=== PATIENT | female | born 1965 | race Caucasian/White ===

== ENCOUNTER 2017-01-27 11:17 | Emergency (ER) | payer BC ==
[2017-01-27 11:48] VITALS: BP 114/55
--- NOTE | 2017-01-27 12:21 | RAD ---
Indication: Left fourth digit injury. 3 views of left foot there is demonstrates avulsion fracture of the left dorsal plate of the distal phalanx of the fourth digit. IMPRESSION: Fracture of the dorsal plate proximal and distal phalanx fourth digit.
--- NOTE | 2017-01-27 12:47 | UC ---
Upper Extremity HPI - HPI Summary HPI Summary: 51F presents with left ring finger injury on 01/19. She jammed it on a basketball. She has pain at the DIP joint. She is unable to fully extend her distal phalanx. She states that she has decreased sensation over the DIP. She denies any previous injury to the area. pain is 3/10. She is right handed. - History of Current Complaint Chief Complaint: UCUpperExtremity Stated Complaint: FINGER INJURY Time Seen by Provider: 01/27/17 12:40 - Allergies/Home Medications Allergies/Adverse Reactions: Allergies Allergy/AdvReac Type Severity Reaction Status Date / Time No Known Allergies Allergy Verified 01/27/17 11:48 Home Medications: Home Medications Ibuprofen [Advil] 2 tab PO Q6H 01/27/17 [History Confirmed 01/27/17] PMH/Surg Hx/FS Hx/Imm Hx Endocrine History: Other Other Endocrine History: no DM Respiratory History: Other Other Respiratory History: no asthma - Surgical History Surgical History: Unable to Obtain/Confirm - Family History Known Family History: Positive: Cardiac Disease - Social History Alcohol Use: Weekly Substance Use Type: None Smoking Status (MU): Never Smoked Tobacco - Immunization History Most Recent Influenza Vaccination: unknown Review of Systems Motor: Decreased ROM - distal phalanx left ring finger All Other Systems Reviewed And Are Negative: Yes Physical Exam Triage Information Reviewed: Yes Appearance: Well-Appearing Vital Signs: Initial Vital Signs Temp 98.2 F 01/27/17 11:42 Pulse 56 01/27/17 11:42 Resp 16 01/27/17 11:42 BP 114/55 01/27/17 11:42 Pulse Ox 100 01/27/17 11:42 Vital Signs Reviewed: Yes Eyes: Positive: Conjunctiva Clear Respiratory: Positive: Lungs clear, Normal breath sounds Cardiovascular: Positive: RRR Musculoskeletal: Positive: ROM Limited @ - distal phalanx left ring finger, Other: - good pulses, capillary refill<2secs, sensation grossly intact Neurological Exam: Normal Psychological Exam: Normal Skin Exam: Normal Diagnostics - Radiology finger Xray Interpretation: Positive (See Comments) - IMPRESSION: Fracture of the dorsal plate proximal and distal phalanx fourth digit. Radiology Interpretation Completed By: Radiologist Upper Extremity Course/Dx - Course Course Of Treatment: 51F presents with left ring finger injury on 01/19. She jammed it on a basketball. She has pain at the DIP joint. She is unable to fully extend her distal phalanx. She states that she has decreased sensation over the DIP. She denies any previous injury to the area. pain is 3/10. on exam has decreased ROM over DIP. neurovascular intact. xray shows fracture of avulsion fracture of distal phlanx. gave metal finger splint and told to follow up with ortho. patient understand and agrees with plan. - Differential Dx/Diagnosis Differential Diagnosis/HQI/PQRI: Fracture (Closed), Strain, Sprain Provider Diagnoses: left ring finger distal phalanx fracture Discharge - Discharge Plan Condition: Good Disposition: HOME Patient Education Materials: Finger Fracture (ED) Referrals: Whitney Gutierrez MD [Primary Care Provider] - Claudy Chase MD [Medical Doctor] - Additional Instructions: Keep finger in splint Follow up with ortho Take tyenlol or ibuprofen for pain every 6 hours Ice, elevate Return to ED if develop any new or worsening symptoms
== END 2017-01-27 12:55 | disposition home or self-care (01) ==
LOC: UCEAST 11:17
DX: S62.635A Displaced fracture of distal phalanx of left ring finger, initial encounter for closed fracture (principal); Y93.67 Activity, basketball; Y93.79 Activity, other specified sports and athletics
CPT/HCPCS: 73140; 99212; G0463

== ENCOUNTER 2017-01-31 13:38 | Day surgery (SDC) | payer BC ==
[~2017-01-31 13:38] MED LIST: Buffered Lidocaine 0.9% SYRIN* 5 ML/SYR SYRINGE INTRADERM ONE; Dexamethasone IV* 4 MG/ML 1 ML (4 MG) IV SLOW PU ONE; Famotidine IV* 10 MG/ML 2 ML (20 mg) IV ONE
[2017-01-31] MEDS ORDERED: Famotidine IV* 10 MG/ML 2 ML (20 mg) ONE (14:05)
[2017-01-31] MEDS ORDERED: Dexamethasone IV* 4 MG/ML 1 ML (4 MG) ONE (14:05)
[2017-01-31] MEDS ORDERED: ceFAZolin 2 GM PREMIX (*) 2 GM/50 ML BAG IVPB ONE (14:05)
[2017-01-31] MEDS ORDERED: Buffered Lidocaine 0.9% SYRIN* 5 ML/SYR SYRINGE ONE (14:06)
[2017-01-31] MEDS ORDERED: Lidocaine 1% INJ* 10 MG/ML 30 ML SDV ONE (16:41)
[2017-01-31] MEDS ORDERED: Bupivacaine 0.5% SDV PF* 30 ML VIAL ONE (16:41)
[2017-01-31] MEDS ORDERED: fentaNYL* 50 MCG/ML 2 ML VIAL (100 MCG VIAL) ONE (16:42)
[2017-01-31] MEDS ORDERED: Midazolam* 1 MG/ML 5 ML VIAL (5 MG) ONE (16:42)
[2017-01-31] MEDS ORDERED: fentaNYL* 50 MCG/ML 2 ML VIAL (100 MCG VIAL) IV PRN (16:50)
[2017-01-31] MEDS ORDERED: HYDROcodone/ACETAMIN 5-325 MG* 1 TAB PO PRN (16:50)
[2017-01-31] MEDS ORDERED: oxyCODONE/Acetamin 5/325 MG* TAB PO PRN (16:50)
[2017-01-31] MEDS ORDERED: Ketorolac INJ* 30 MG/ML 1 ML VIAL IV PRN (16:50)
[2017-01-31] MEDS ORDERED: PROCHLORPERAZINE INJ 5 MG/ML 2 ML VIAL IV PRN (16:50)
[2017-01-31] MEDS ORDERED: Propofol* 10 MG/ML 20 ML BTL IV PUSH ONE ×2 (17:05→18:00)
[2017-01-31] MEDS ORDERED: Lidocaine 2% PF * 5 ML VIAL ONE (17:05)
[2017-01-31] MEDS ORDERED: Ondansetron INJ* 2 MG/ML VIAL ONE (17:53)
[2017-01-31 20:21] VITALS: BP 116/79
--- NOTE | 2017-02-01 16:15 | RAD ---
CPT II Codes: 6045F INDICATION: Left ring finger mallet deformity TECHNIQUE: Intraoperative fluoroscopy was provided during percutaneous pinning fixation of the left ring finger. FINDINGS: 20 spot films depict placement of 3 percutaneous pins spanning the left ring finger distal interphalangeal joint. Fluoroscopy time: 28 seconds IMPRESSION: As above.
--- NOTE | 2017-02-03 01:08 | OP ---
DATE OF OPERATION: 01/31/17 [facility] DATE OF : 67 SURGEON: Claudy Chase MD ENVIRONMENTAL PROJECTS ADVISOR: ESTEBAN Chow. A physician ssn/ssbn assistant navigator was required for the length of the procedure for help with positioning and instrumentation. ANESTHESIOLOGIST: Jadon Tran MD ANESTHESIA: General sedation, local anesthesia digital block with 10 cc of a 1: 1 ratio of 1% lidocaine and 0.5% Marcaine. PRE-OP DIAGNOSES: 1. Left ring finger bony mallet injury. 2. Avulsion fracture, distal phalanx. POST-OP DIAGNOSES: 1. Left ring finger bony mallet injury. 2. Avulsion fracture, distal phalanx. OPERATIVE PROCEDURE: Closed reduction percutaneous pinning, bony mallet, distal phalanx avulsion fracture, left ring finger using extension blocking technique. ANTIBIOTICS: Ancef 2 g IV. IV FLUIDS: See Anesthesia note. COMPLICATIONS: None. TOURNIQUET TIME: Zero minutes. SPECIMEN: None. IMPLANTS: Three K-wires. Two of the K-wires were 0.045 in size. One K-wire was 0.035 in size. ESTIMATED BLOOD LOSS: 0 cc. 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 See history and physical for full history. The patient was late in reporting to [facility] and was then referred to my office. I saw the patient in clinic yesterday, I made the diagnosis of a bony mallet injury. I booked the patient for surgery, closed reduction percutaneous pinning using extension block pinning. Possible open reduction internal fixation. Discussed with the patient possible risks and complications including bleeding, infection, nerve or blood vessel injury, finger pain, stiffness, osteoarthritis , implant complications. DESCRIPTION OF PROCEDURE: In preoperative holding a consent form was signed. Operative extremity and finger were marked in preoperative holding. The patient was taken back to the operating room table and kept on the stretcher. The patient was sedated. The left upper extremity was prepped with Betadine. Left upper extremity was draped. Prior to prep and drape, I performed a time-out, I brought the mini C-arm in, and fully extended the DIP joint of the left ring finger and found that there was no full reduction at the fracture site as anticipated. This confirmed what had been seen on x-rays preoperatively. The left upper extremity was prepped and draped. Surgical time-out was performed. I then performed a digital nerve block. I performed the block by first infiltrating the flexor tendon sheath approximately. Then I anesthetized some dorsal skin and then the digital nerves on the radial and ulnar aspect of the left ring finger. I next waited 5 minutes. I fully flexed the DIP joint of the left ring finger. I placed a 0.045 pin at an angle somewhere between 20 and 45 degrees to the long axis of the middle phalanx, just proximal to the avulsion fracture fragment and into the head of the middle phalanx, the extension blocking pin. This was placed bicortically. I next fully extended the DIP joint and placed some dorsal translation forces well on the distal phalanx. This reduced almost perfectly the fracture fragments. I next placed a 0.045 pin through the distal phalanx into the middle phalanx stopping at the subchondral bone at the base of the middle phalanx. I took multiple images. While the reduction was not perfect, the joint was congruent and there was much bone opposition to beget healing. I next placed a 0.035 pin through the avulsion fracture fragment into the remainder of the distal phalanx. I liked the length of my pins. I liked the reduction of the fracture fragments. I cut the ends of the pins, bent the end of pins and put pins caps on. I next placed Xeroform, 4x4's, Coban. I next placed an AlumaFoam splint U shaped and Coban'd that. DISPOSITION: Home. The patient was awake and then transferred to the PACU. We provide the patient with discharge instructions. The patient was given Percocet as needed for pain control. The patient was given Keflex to take for 7 days. The patient will see me 4 or 6 days postoperatively in clinic. I told her to leave her operative dressing on until that time as I do not want the patient taking off her dressing and possibly pulling off her pins by mistake. The patient is very active in kitchen and I encouraged her to prevent her from being too active in the postoperative period. [id number]/[facility] #: [id number] MARLA
== END 2017-01-31 19:55 | disposition home or self-care (01) ==
LOC: OR 13:38
PROVIDERS: ATTEND Orthopaedic Surgery
DX: M20.012 Mallet finger of left finger(s) (principal); S62.635A Displaced fracture of distal phalanx of left ring finger, initial encounter for closed fracture; W21.05XA Struck by basketball, initial encounter; Y93.67 Activity, basketball; Y92.89 Other specified places as the place of occurrence of the external cause
CPT/HCPCS: 76000; 81025; J0690; J1100; J2250; J2405; J2704; J3010